=== PATIENT | female | born 1985 | race Caucasian/White ===

== ENCOUNTER 2022-09-25 16:58 | Outpatient (CLI) | payer OTHER, SELFPAY ==
[2022-10-04 12:53] LABS: HPV APTIMA, High Risk Negative (Negative)
== END 2022-09-25 23:59 | disposition home or self-care (01) ==
PROVIDERS: Visit Provider Registered Nurse
DX: Z12.4 Encounter for screening for malignant neoplasm of cervix (principal)
CPT/HCPCS: 87624; 88175; G0145